=== PATIENT | female | born 1965 ===

== ENCOUNTER 2020-04-03 09:11 | Outpatient (CLI) | payer MEDICAID ==
--- NOTE | 2020-04-03 10:00 | Consultation ---
DATE OF CONSULTATION: 04/03/2020 GASTROENTEROLOGY CONSULTATION CONSULTING PHYSICIAN: Nils Bartholomew MD. CHIEF COMPLAINT: Referral for rectal bleeding. PAST MEDICAL HISTORY: 1. History of colon polyps x2. 2. Hemorrhoids. 3. Hypertension. 4. Lupus. 5. Arthritis. PAST SURGICAL HISTORY: None. MEDICATIONS: Please see medication reconciliation list. FAMILY HISTORY: Mother from leukemia. SOCIAL HISTORY: The patient denies any tobacco, alcohol, or drug abuse. ALLERGIES: To penicillin. REVIEW OF SYSTEMS: Positive for constipation, rectal bleeding, and abdominal pain, bilateral lower quadrants. PHYSICAL EXAMINATION: VITAL SIGNS: Temperature 97.6. Vital signs stable. HEENT: Normocephalic and atraumatic. Sclerae are anicteric. NECK: Supple. No evidence of obvious lymphadenopathy. CARDIOVASCULAR: Regular rate and rhythm. Plus S1 and S2. LUNGS: Clear to auscultation bilaterally. ABDOMEN: Positive bowel sounds. Soft and nontender. No rebound. No guarding. No peritoneal sign. EXTREMITIES: No cyanosis, no clubbing, no edema. ASSESSMENT AND PLAN: A 54-year-old female with abdominal pain, constipation, blood in stool, history of colonic polyp, needs repeat colonoscopy. Plan to schedule when authorization is obtained. Nils Bartholomew M.D. DR: KELI JOB#: [id number] CC:
[2020-04-03] MEDS ORDERED: SPIRONOLACTONE25 MG ORAL (14:59)
[2020-04-03] MEDS ORDERED: METOPROLOL SUCC50 MG ORAL (14:59)
[2020-04-03] MEDS ORDERED: NORVASC10 MG ORAL (14:59)
[2020-04-03] MEDS ORDERED: OMEPRAZOLE20 M2 ORAL (14:59)
[2020-04-03] MEDS ORDERED: IBUPROFEN600 M1 ORAL (14:59)
[2020-04-03] MEDS ORDERED: DOCUSATE SODIU250 MG ORAL (14:59)
[2020-04-03] MEDS ORDERED: LEFLUNOMIDE10 MG PO (14:59)
[2020-04-03] MEDS ORDERED: PREDNISONE5 M3 PO (14:59)
[2020-04-03] MEDS ORDERED: FOLIC ACID1 MG ORAL (14:59)
[2020-04-03] MEDS ORDERED: SYNTHROID100 MCG ORAL (14:59)
[2020-04-03] MEDS ORDERED: PLAQUENIL ORAL (14:59)
[2020-04-03] MEDS ORDERED: CHLORTHALIDONE25 MG ORAL (14:59)
== END 2020-04-03 11:11 | disposition home or self-care (01) ==
LOC: PAN 09:11
DX: K62.5 Hemorrhage of anus and rectum (principal); I10 Essential (primary) hypertension; M19.90 Unspecified osteoarthritis, unspecified site; Z86.010 Personal history of colon polyps; Z88.0 Allergy status to penicillin; K59.00 Constipation, unspecified; R10.30 Lower abdominal pain, unspecified
CPT/HCPCS: G0463

== ENCOUNTER 2020-06-20 12:39 | Outpatient (CLI) | payer MEDICAID ==
[~2020-06-20 12:39] MED LIST: CHLORTHALIDONE25 MG ORAL; DOCUSATE SODIU250 MG ORAL; FOLIC ACID1 MG ORAL; IBUPROFEN600 M1 ORAL; LEFLUNOMIDE10 MG PO; METOPROLOL SUCC50 MG ORAL; NORVASC10 MG ORAL; OMEPRAZOLE20 M2 ORAL; PLAQUENIL ORAL; PREDNISONE5 M3 PO; SPIRONOLACTONE25 MG ORAL; SYNTHROID100 MCG ORAL
--- NOTE | 2020-06-20 14:15 | General Progress Note ---
Subjective ROS Limited/Unobtainable: Yes Allergies: Coded Allergies: LISINOPRIL (Verified Allergy, Unknown, 04/03/20) PENICILLINS (Verified Allergy, Unknown, 04/03/20) Objective General Appearance: no apparent distress EENT: normal ENT inspection Neck: supple Cardiovascular: normal rate Respiratory/Chest: decreased breath sounds Abdomen: normal bowel sounds, non tender, soft Extremities: non-tender Assessment/Plan Assessment/Plan: 1. History of colon polyps x2. 2. Hemorrhoids. 3. Hypertension. 4. Lupus. 5. Arthritis. Trulance anusol HC pending colonoscopy when [facility] opens Nils Bartholomew MD Jun 20, 2020 14:15
== END 2020-06-20 15:30 | disposition home or self-care (01) ==
LOC: PAN 12:39
DX: K64.9 Unspecified hemorrhoids (principal); Z86.010 Personal history of colon polyps; I10 Essential (primary) hypertension; M32.9 Systemic lupus erythematosus, unspecified; M19.90 Unspecified osteoarthritis, unspecified site; Z88.0 Allergy status to penicillin
CPT/HCPCS: 99212

== ENCOUNTER 2020-08-02 13:00 | Outpatient (CLI) | payer MEDICAID ==
[2020-08-02 13:00] VITALS: BP 148/86
--- NOTE | 2020-08-03 16:57 | General Progress Note ---
Subjective ROS Limited/Unobtainable: No Allergies: Coded Allergies: LISINOPRIL (Verified Allergy, Unknown, 04/03/20) PENICILLINS (Verified Allergy, Unknown, 04/03/20) Objective General Appearance: alert EENT: normal ENT inspection Neck: supple Cardiovascular: normal rate Respiratory/Chest: decreased breath sounds Abdomen: normal bowel sounds, non tender, soft Extremities: non-tender Assessment/Plan Assessment/Plan: Assessment/Plan Assessment/Plan: 1. History of colon polyps x2. 2. Hemorrhoids. 3. Hypertension. 4. Lupus. 5. Arthritis. Hardeep ochoa s/p colonoscopy repeat colon in 5 years Nils Bartholomew MD Aug 03, 2020 16:57
== END 2020-08-02 15:00 | disposition home or self-care (01) ==
LOC: PAN 13:00
DX: K64.9 Unspecified hemorrhoids (principal); I10 Essential (primary) hypertension; M32.9 Systemic lupus erythematosus, unspecified; Z86.010 Personal history of colon polyps; M19.90 Unspecified osteoarthritis, unspecified site; Z88.0 Allergy status to penicillin
CPT/HCPCS: 99212